=== PATIENT | female | born 1990 | race Hispanic/Latino ===

== ENCOUNTER 2019-07-17 15:25 | Emergency (ER) | payer MEDICAID, OTHER ==
[~2019-07-17] VITALS: Ht 157.5 cm; Wt 61.6 kg
[2019-07-17] MEDS ORDERED: ACETAMINOPHEN 325 MG TAB PO ONE (15:45)
[2019-07-17 16:21] LABS: INFLUENZA A AMPLIFICATION NEGATIVE (NEGATIVE); INFLUENZA B AMPLIFICATION NEGATIVE (NEGATIVE)
[2019-07-17] MEDS ORDERED: ALBUTEROL SULFATE 2.5 MG/0.5 ML INH NEB SOLN NEB ONE (18:00)
[2019-07-17] MEDS ORDERED: methylPREDNISolone INJ 125 MG/2 ML VIAL (J2930) IV ONE (18:45)
--- NOTE | 2019-07-17 18:50 | REP ---
CHEST, PA AND LATERAL: 07/17/2019. Clinical history: Dyspnea. Findings: No prior studies. Two-view show the lung aragon mildly hypoinflated. There are crowded markings posteriorly in the lower lung zones that may reflect some subsegmental atelectatic change or early infiltrate. There is no effusion or dense consolidation with air bronchograms. Lung aragon otherwise clear. The heart, mediastinal and hilar contour, aorta and airway also unremarkable. No free air. Bones intact. Impression: 1. Mild hypoinflation with bibasilar patchy atelectatic changes in the lower lung zones posteriorly. No dense consolidation, effusion, cardiomegaly or edema. Electronically Signed by Kingsley Harman MD 07/17/2019 08:27 P
[2019-07-17] MEDS ORDERED: methylPREDNISolone INJ 125 MG/2 ML VIAL (J2930) IM ONE (19:15)
[2019-07-17] MEDS ORDERED: IBUPROFEN 600 MG TAB PO ONE (19:30)
[2019-07-17 21:18] VITALS: BP 113/67
[2019-07-17] MEDS ORDERED: VENTAER INH (21:22)
[2019-07-17] MEDS ORDERED: ONDA4TAB6 PO (21:22)
[2019-07-17] MEDS ORDERED: PRED20TA PO (21:22)
== END 2019-07-17 21:36 | disposition home or self-care (01) ==
LOC: M ED 15:25
DX: J20.9 Acute bronchitis, unspecified (principal); R50.9 Fever, unspecified
CPT/HCPCS: 71046; 87502; 87880; 94640; 96372; 99284; J2930

== ENCOUNTER → 2020-03-01 | Outpatient (REF) | payer OTHER, MEDICAID ==
[~2020-03-01] MED LIST: ONDA4TAB6 PO; PRED20TA PO; VENTAER INH
[2020-03-01 17:06] LABS: APPEARANCE, URINE CLEAR (CLEAR); BACTERIA, URINE AUTO NEGATIVE (NEGATIVE); BILIRUBIN, URINE AUTO NEGATIVE (NEGATIVE); BLOOD, URINE BLOOD 1+ (NEGATIVE); COLOR, URINE YELLOW (YELLOW); GLUCOSE, URINE (UA) AUTO NEGATIVE (NEGATIVE); KETONE, URINE AUTO NEGATIVE (NEGATIVE); LEUKOCYTE ESTERASE, URINE AUTO TRACE (NEGATIVE); NITRITE, URINE AUTO NEGATIVE (NEGATIVE); PROTEIN, URINE AUTO NEGATIVE (NEGATIVE); RBC, URINE AUTO 0 /HPF (0-3); SPECIFIC GRAVITY URINE AUTO 1.019 (1.002-1.035); SQUAMOUS EPITHELIAL CELL UR AU 2 /HPF (0-6); UROBILINOGEN, URINE AUTO 0.2 mg/dL (0.0-2.0); WBC, URINE AUTO 1 /HPF (0-3)
== END ==
LOC: M LAB REF 16:30
PROVIDERS: ATTEND Nurse Practitioner Family
DX: R50.9 Fever, unspecified (principal)

== ENCOUNTER → 2020-03-09 | Outpatient (REF) | payer OTHER, MEDICAID | LOC: M LAB REF 09:46 | PROVIDERS: ATTEND Plastic Surgery Surgery of the Hand | DX: D22.39 Melanocytic nevi of other parts of face (principal) ==